=== PATIENT | female | born 1960 | race Caucasian/White ===

== ENCOUNTER 2021-01-31 12:56 | Inpatient (IN) | payer BC, OTHER ==
--- NOTE | 2021-01-31 13:11 | EDM.PDOC ---
ED HPI GENERAL MEDICAL PROBLEM - General Stated Complaint: AMBULANCE Time Seen by Provider: 01/31/21 13:04 - History of Present Illness INITIAL COMMENTS - FREE TEXT/NARRATIVE: 61 y/o F brought in by ems for ams. Found unresponsive by mother. Mom called 91 1. Unknown ingestion, trauma, downtime. EMS gave 2mg narcan and reports some brief improvement in activity. Pt has been non resposive for ems breathing adequately. Unknown medical hx. - Related Data Allergies Allergy/AdvReac Type Severity Reaction Status Date / Time Unable to Assess Allergy Unverified 01/31/21 13:44 Home Meds: Home Meds . [Unable to Verify Home Med List] 01/31/21 [History] ED ROS GENERAL - Review of Systems Review Of Systems: Unable To Obtain Reason Not Obtained: ams - Physical Exam Exam: See Below Exam Limited By: Altered Mental Status General Appearance: Obtunded Eye Exam: Bilateral Eye: Other (pinpoint) Ears: Normal External Exam, Normal Canal, Hearing Grossly Normal, Normal TMs Nose: Normal Inspection, Normal Mucosa, No Blood Throat/Mouth: Normal Inspection, Normal Lips, Normal Teeth, Normal Gums, Normal Oropharynx, Normal Voice, No Airway Compromise Head Exam: Atraumatic, Normocephalic Neck: Supple, Non-Tender Respiratory/Chest: No Respiratory Distress, Lungs Clear Cardiovascular: Normal Peripheral Pulses, Regular Rate, Rhythm GI/Abdominal: Soft, Non-Tender (Female) Exam: Deferred Rectal (Female) Exam: Deferred Back Exam: Normal Inspection, Full Range of Motion Extremities: Normal Inspection, Normal Range of Motion, Non-Tender, No Pedal Edema, Normal Capillary Refill Skin Exam: Warm, Dry, Intact Course - Vital Signs Last Recorded V/S: Last Vital Signs Temp 96.6 F L 01/31/21 13:36 Pulse 93 01/31/21 13:36 Resp 25 H 01/31/21 13:36 BP 121/80 01/31/21 13:36 Pulse Ox 91 L 01/31/21 13:36 - Orders/Labs/Meds Orders: Active Orders 24 hr Category Date Time Status Patient Status [ADT] Routine ADT 01/31/21 15:40 Active Labs: Laboratory Tests 01/31/21 01/31/21 01/31/21 Range/Units 13:00 13:00 13:00 WBC 8.1 (5.0-10.0) 10^3/uL RBC 5.11 (4.2-5.4) 10^6/uL Hgb 14.8 (12.0-16.0) g/dL Hct 44.3 (37.0-47.0) % MCV 86.7 (80-100) fL MCH 29.0 (27.0-34.0) pg MCHC 33.4 (33.0-35.0) g/dL Plt Count 250 (150-450) 10^3/uL Neut % (Auto) 81.9 H (42.2-75.2) % Lymph % (Auto) 13.5 L (20.5-50.1) % [place] % (Auto) 4.1 (2-8) % Eos % (Auto) 0.4 L (1.0-3.0) % Baso % (Auto) 0.1 (0.0-1.0) % Sodium 139 (136-145) mmol/L Potassium 3.8 (3.5-5.1) mmol/L Chloride 102 (98-107) mmol/L Carbon Dioxide 26 (21-32) mmol/L Anion Gap 14.8 H (7-13) mEq/L BUN 12 (7-18) mg/dL Creatinine 0.84 (0.55-1.02) mg/dL Est Cr Clr Drug Dosing TNP Estimated GFR (MDRD) > 60 BUN/Creatinine Ratio 14.3 (No establ ref range) Glucose 94 (70-99) mg/dL Lactic Acid 0.8 (0.4-2.0) mmol/L Calcium 8.7 (8.5-10.1) mg/dL Magnesium 2.2 (1.8-2.4) mg/dL Total Bilirubin 0.5 (0.2-1.0) mg/dL AST 37 (15-37) U/L ALT 38 (14-59) U/L Alkaline Phosphatase 106 (46-116) U/L Troponin I High Sens 5 (<=51) pg/mL C-Reactive Protein < 0.2 (0.0-0.9) mg/dL B-Natriuretic Peptide 12 (0-100) pg/ml Total Protein 6.9 (6.4-8.2) g/dL Albumin 3.5 (3.4-5.0) g/dL Globulin 3.4 Albumin/Globulin Ratio 1.0 Amylase 39 (25-115) U/L Lipase 98 (73-393) U/L Urine Color (YELLOW) Urine Appearance (CLEAR) Urine pH (5.0-9.0) Ur Specific [place] (1.005-1.030) Urine Protein (NEGATIVE) Urine Glucose (UA) (NEGATIVE) Urine Ketones (NEGATIVE) Urine Occult Blood (NEGATIVE) Urine Nitrite (NEGATIVE) Urine Bilirubin (NEGATIVE) Urine Urobilinogen (0.2-1.0) mg/dL Ur Leukocyte Esterase (NEGATIVE) Salicylates (2.8-20(Therapeutic)) mg/dL Urine Opiates Screen (NEGATIVE) Ur Oxycodone Screen (NEGATIVE) Urine Methadone Screen (NEGATIVE) Acetaminophen 0 L (10-30 (Therapeutic)) ug/mL Ur Barbiturates Screen (NEGATIVE) U Tricyclic Antidepress (NEGATIVE) Ur Phencyclidine Scrn (NEGATIVE) Ur Amphetamine Screen (NEGATIVE) U Methamphetamines Scrn (NEGATIVE) Urine MDMA Screen (NEGATIVE) U Benzodiazepines Scrn (NEGATIVE) Urine Cocaine Screen (NEGATIVE) U Marijuana (THC) Screen (NEGATIVE) Ethyl Alcohol < 3 (0) mg/dL SARS CoV-2 RNA Rapid JIMMY (NEGATIVE) 01/31/21 01/31/21 01/31/21 Range/Units 13:00 13:06 13:06 WBC (5.0-10.0) 10^3/uL RBC (4.2-5.4) 10^6/uL Hgb (12.0-16.0) g/dL Hct (37.0-47.0) % MCV (80-100) fL MCH (27.0-34.0) pg MCHC (33.0-35.0) g/dL Plt Count (150-450) 10^3/uL Neut % (Auto) (42.2-75.2) % Lymph % (Auto) (20.5-50.1) % [place] % (Auto) (2-8) % Eos % (Auto) (1.0-3.0) % Baso % (Auto) (0.0-1.0) % Sodium (136-145) mmol/L Potassium (3.5-5.1) mmol/L Chloride (98-107) mmol/L Carbon Dioxide (21-32) mmol/L Anion Gap (7-13) mEq/L BUN (7-18) mg/dL Creatinine (0.55-1.02) mg/dL Est Cr Clr Drug Dosing Estimated GFR (MDRD) BUN/Creatinine Ratio (No establ ref range) Glucose (70-99) mg/dL Lactic Acid (0.4-2.0) mmol/L Calcium (8.5-10.1) mg/dL Magnesium (1.8-2.4) mg/dL Total Bilirubin (0.2-1.0) mg/dL AST (15-37) U/L ALT (14-59) U/L Alkaline Phosphatase (46-116) U/L Troponin I High Sens (<=51) pg/mL C-Reactive Protein (0.0-0.9) mg/dL B-Natriuretic Peptide (0-100) pg/ml Total Protein (6.4-8.2) g/dL Albumin (3.4-5.0) g/dL Globulin Albumin/Globulin Ratio Amylase (25-115) U/L Lipase (73-393) U/L Urine Color Yellow (YELLOW) Urine Appearance Slightly cloudy (CLEAR) Urine pH 5.0 (5.0-9.0) Ur Specific [place] 1.025 (1.005-1.030) Urine Protein Negative (NEGATIVE) Urine Glucose (UA) Negative (NEGATIVE) Urine Ketones Trace H (NEGATIVE) Urine Occult Blood Negative (NEGATIVE) Urine Nitrite Negative (NEGATIVE) Urine Bilirubin Negative (NEGATIVE) Urine Urobilinogen 0.2 (0.2-1.0) mg/dL Ur Leukocyte Esterase Negative (NEGATIVE) Salicylates < 2.8 L (2.8-20(Therapeutic)) mg/dL Urine Opiates Screen Negative (NEGATIVE) Ur Oxycodone Screen Negative (NEGATIVE) Urine Methadone Screen Negative (NEGATIVE) Acetaminophen (10-30 (Therapeutic)) ug/mL Ur Barbiturates Screen Negative (NEGATIVE) U Tricyclic Antidepress Negative (NEGATIVE) Ur Phencyclidine Scrn Negative (NEGATIVE) Ur Amphetamine Screen Negative (NEGATIVE) U Methamphetamines Scrn Negative (NEGATIVE) Urine MDMA Screen Negative (NEGATIVE) U Benzodiazepines Scrn Positive H (NEGATIVE) Urine Cocaine Screen Negative (NEGATIVE) U Marijuana (THC) Screen Negative (NEGATIVE) Ethyl Alcohol (0) mg/dL SARS CoV-2 RNA Rapid JIMMY (NEGATIVE) 10/22/21 Range/Units 15:29 WBC (5.0-10.0) 10^3/uL RBC (4.2-5.4) 10^6/uL Hgb (12.0-16.0) g/dL Hct (37.0-47.0) % MCV (80-100) fL MCH (27.0-34.0) pg MCHC (33.0-35.0) g/dL Plt Count (150-450) 10^3/uL Neut % (Auto) (42.2-75.2) % Lymph % (Auto) (20.5-50.1) % [place] % (Auto) (2-8) % Eos % (Auto) (1.0-3.0) % Baso % (Auto) (0.0-1.0) % Sodium (136-145) mmol/L Potassium (3.5-5.1) mmol/L Chloride (98-107) mmol/L Carbon Dioxide (21-32) mmol/L Anion Gap (7-13) mEq/L BUN (7-18) mg/dL Creatinine (0.55-1.02) mg/dL Est Cr Clr Drug Dosing Estimated GFR (MDRD) BUN/Creatinine Ratio (No establ ref range) Glucose (70-99) mg/dL Lactic Acid (0.4-2.0) mmol/L Calcium (8.5-10.1) mg/dL Magnesium (1.8-2.4) mg/dL Total Bilirubin (0.2-1.0) mg/dL AST (15-37) U/L ALT (14-59) U/L Alkaline Phosphatase (46-116) U/L Troponin I High Sens (<=51) pg/mL C-Reactive Protein (0.0-0.9) mg/dL B-Natriuretic Peptide (0-100) pg/ml Total Protein (6.4-8.2) g/dL Albumin (3.4-5.0) g/dL Globulin Albumin/Globulin Ratio Amylase (25-115) U/L Lipase (73-393) U/L Urine Color (YELLOW) Urine Appearance (CLEAR) Urine pH (5.0-9.0) Ur Specific [place] (1.005-1.030) Urine Protein (NEGATIVE) Urine Glucose (UA) (NEGATIVE) Urine Ketones (NEGATIVE) Urine Occult Blood (NEGATIVE) Urine Nitrite (NEGATIVE) Urine Bilirubin (NEGATIVE) Urine Urobilinogen (0.2-1.0) mg/dL Ur Leukocyte Esterase (NEGATIVE) Salicylates (2.8-20(Therapeutic)) mg/dL Urine Opiates Screen (NEGATIVE) Ur Oxycodone Screen (NEGATIVE) Urine Methadone Screen (NEGATIVE) Acetaminophen (10-30 (Therapeutic)) ug/mL Ur Barbiturates Screen (NEGATIVE) U Tricyclic Antidepress (NEGATIVE) Ur Phencyclidine Scrn (NEGATIVE) Ur Amphetamine Screen (NEGATIVE) U Methamphetamines Scrn (NEGATIVE) Urine MDMA Screen (NEGATIVE) U Benzodiazepines Scrn (NEGATIVE) Urine Cocaine Screen (NEGATIVE) U Marijuana (THC) Screen (NEGATIVE) Ethyl Alcohol (0) mg/dL SARS CoV-2 RNA Rapid JIMMY Negative (NEGATIVE) Meds: Medications Discontinued Medications Generic Name Dose Route Start Last Admin Trade Name Freq PRN Reason Stop Dose Admin Flumazenil 0.5 mg 01/31/21 14:13 01/31/21 14:29 Flumazenil 0.1 Mg/Ml 5 Ml Mdv IVPUSH 01/31/21 14:14 0.5 mg ONETIME ONE Administration Flumazenil 0.5 mg 01/31/21 14:36 Flumazenil 0.1 Mg/Ml 5 Ml Mdv IVPUSH 01/31/21 14:37 ONETIME ONE Naloxone HCl 2 mg 01/31/21 13:15 01/31/21 13:18 Naloxone 2 Mg/2 Ml Syringe IVPUSH 01/31/21 13:16 2 mg ONETIME ONE Administration Naloxone HCl Confirm 01/31/21 13:17 01/31/21 13:58 Naloxone 2 Mg/2 Ml Syringe Administered 01/31/21 13:18 Not Given Dose 2 mg .ROUTE .STK-MED ONE - Re-Assessments/Exams Free Text/Narrative Re-Assessment/Exam: 01/31/21 15:02 I discussed the pt with Dr. Burton who accepted the pt for inpatient treatment. 01/31/21 15:07 The pt was given a dose of Romazicon and did wake up briefly. She states that she did not intentionally overdose on her meds and does not state any suicidal ideations or depression. Departure - Departure Time of Disposition: 15:05 (Dr. Burton) Disposition: Admitted As Inpatient 66 Condition: Fair Clinical Impression: Benzodiazepine (tranquilizer) overdose Qualifiers: Encounter type: initial encounter Injury intent: accidental or unintentional Qualified Code(s): T42.4X1A - Poisoning by benzodiazepines, accidental (unintentional), initial encounter - Discharge Information *PRESCRIPTION DRUG MONITORING PROGRAM REVIEWED*: Not Applicable *COPY OF PRESCRIPTION DRUG MONITORING REPORT IN PATIENT ALEX: Not Applicable Sepsis Event Note (ED) - Focused Exam Vital Signs: Vital Signs Temp Pulse Resp BP Pulse Ox 01/31/21 13:36 96.6 F L 93 25 H 121/80 91 L
[2021-01-31] MEDS ORDERED: Naloxone 2 MG/2 ML Syringe IVPUSH ONE (13:15)
[2021-01-31] MEDS ORDERED: Naloxone 2 MG/2 ML Syringe ONE (13:17)
[2021-01-31 13:27] LABS: AMPHETAMINES,URINE NEGATIVE (NEGATIVE); BARBITURATES,URINE NEGATIVE (NEGATIVE); MDMA (ECSTASY), URINE NEGATIVE (NEGATIVE); METHADONE,URINE NEGATIVE (NEGATIVE); METHAMPHETAMINES,URINE NEGATIVE (NEGATIVE); OPIATES,URINE NEGATIVE (NEGATIVE); OXYCODONE,URINE NEGATIVE (NEGATIVE); PHENCYCLIDINE,URINE NEGATIVE (NEGATIVE); TCA,URINE NEGATIVE (NEGATIVE)
[2021-01-31 13:28] LABS: BENZODIAZEPINE,URINE POSITIVE (NEGATIVE)
[2021-01-31 13:29] LABS: ANION GAP 14.8 mEq/L (7-13); CHLORIDE,CL 102 mmol/L (98-107); SODIUM,NA 139 mmol/L (136-145)
[2021-01-31 13:30] LABS: ACETAMINOPHEN 0 ug/mL (10-30 (Therapeutic))
--- NOTE | 2021-01-31 13:38 | CT ---
PROCEDURE INFORMATION: Exam: CT Head Without Contrast Exam date and time: 01/31/2021 1:27 PM Age: 61 years old Clinical indication: Altered mental status/memory loss; Additional info: AMS TECHNIQUE: Imaging protocol: Computed tomography of the head without contrast. Radiation optimization: All CT scans at this facility use at least one of these dose optimization techniques: automated exposure control; mA and/or kV adjustment per patient size (includes targeted exams where dose is matched to clinical indication); or iterative reconstruction. Other technique: STROKE PROTOCOL was implemented. COMPARISON: No relevant prior studies available. FINDINGS: Brain: Normal. No hemorrhage. Unremarkable white matter. No mass effect. Cerebral ventricles: No ventriculomegaly. Paranasal sinuses: Visualized sinuses are unremarkable. No fluid levels. Mastoid air cells: Visualized mastoid air cells are well aerated. Bones/joints: Unremarkable. No acute fracture. Soft tissues: Unremarkable. IMPRESSION: No acute intracranial abnormality. ASSESSMENT: ASPECTS ([place] Stroke Program Early CT Score) is 10.
[2021-01-31] MEDS ORDERED: Flumazenil 0.1 MG/ML 5 ML MDV IVPUSH ONE ×2 (14:13→14:36)
--- NOTE | 2021-01-31 19:12 | PCM.HP ---
H&P History of Present Illness - General Date of Service: 01/31/21 Admit Problem/Dx: Admission Diagnosis/Problem Admission Diagnosis/Problem Mental status, decreased - History of Present Illness Initial Comments - Free Text/Narative: Paola is a 61-year-old woman who was brought to the ED by EMS after being found unresponsive at home. She was given Narcan by the EMS crew, which did improve her mentation a little bit. By the time she got to the ED, she was really not protecting her airway well, and oxygen saturations were in the upper 70s to lower 80s. She was given a dose of flumazenil, after which she then woke up and was answering some questions from the ER provider. He documents that she denied any kind of suicidal ideation or intentional overdose. Shortly after this conversation, she again became somewhat obtunded, was still saturating in the 90s on 2 L of nasal cannula, but not able to talk or respond to questions. She was withdrawn and interacting with most stimuli. Decision was then made to admit her overnight, hopefully she will metabolize what ever it is that she took, although urine drug screen was only positive for benzodiazepines. - Related Data Allergies/Adverse Reactions: Allergies Allergy/AdvReac Type Severity Reaction Status Date / Time Penicillins Allergy Other Verified 01/31/21 18:32 Home Medications: Home Meds . [No Known Home Meds] 01/31/21 [History] Social & Family History - Family History Family Medical History: Unobtainable - Tobacco Use Tobacco Use Status *Q: Unknown Ever Used Tobacco H&P Review of Systems - Review of Systems: Review Of Systems: Unable To Obtain Reason Not Obtained: Unable to obtain due to mental status change Exam - Exam Exam: See Below - Vital Signs Vital Signs: Last Vital Signs Temp 98.5 F 01/31/21 16:29 Pulse 84 01/31/21 16:29 Resp 20 01/31/21 16:29 BP 105/73 01/31/21 16:29 Pulse Ox 100 01/31/21 16:29 Weight: 166 lb 1.6 oz - Exam Physical Exam Comments:: General: Paola is a 61-year-old woman who has significant mental status change, but in no acute distress Oropharynx is clear, mucous membranes are moist. She does appear now to be appropriately protecting her airway Neck: Supple, no lymphadenopathy Heart: Regular rate and rhythm, 1 out of 6 systolic murmur best heard over the left sternal border Lungs: Clear to auscultation throughout Neurological exam is very difficult as she cannot cooperate with the exam - Patient Data Lab Results Last 24 hrs: Laboratory Results - last 24 hr 01/31/21 01/31/21 01/31/21 Range/Units 13:00 13:00 13:00 WBC 8.1 (5.0-10.0) 10^3/uL RBC 5.11 (4.2-5.4) 10^6/uL Hgb 14.8 (12.0-16.0) g/dL Hct 44.3 (37.0-47.0) % MCV 86.7 (80-100) fL MCH 29.0 (27.0-34.0) pg MCHC 33.4 (33.0-35.0) g/dL Plt Count 250 (150-450) 10^3/uL Neut % (Auto) 81.9 H (42.2-75.2) % Lymph % (Auto) 13.5 L (20.5-50.1) % [place] % (Auto) 4.1 (2-8) % Eos % (Auto) 0.4 L (1.0-3.0) % Baso % (Auto) 0.1 (0.0-1.0) % Sodium 139 (136-145) mmol/L Potassium 3.8 (3.5-5.1) mmol/L Chloride 102 (98-107) mmol/L Carbon Dioxide 26 (21-32) mmol/L Anion Gap 14.8 H (7-13) mEq/L BUN 12 (7-18) mg/dL Creatinine 0.84 (0.55-1.02) mg/dL Est Cr Clr Drug Dosing TNP Estimated GFR (MDRD) > 60 BUN/Creatinine Ratio 14.3 (No establ ref range) Glucose 94 (70-99) mg/dL Lactic Acid 0.8 (0.4-2.0) mmol/L Calcium 8.7 (8.5-10.1) mg/dL Magnesium 2.2 (1.8-2.4) mg/dL Total Bilirubin 0.5 (0.2-1.0) mg/dL AST 37 (15-37) U/L ALT 38 (14-59) U/L Alkaline Phosphatase 106 (46-116) U/L Troponin I High Sens 5 (<=51) pg/mL C-Reactive Protein < 0.2 (0.0-0.9) mg/dL B-Natriuretic Peptide 12 (0-100) pg/ml Total Protein 6.9 (6.4-8.2) g/dL Albumin 3.5 (3.4-5.0) g/dL Globulin 3.4 Albumin/Globulin Ratio 1.0 Amylase 39 (25-115) U/L Lipase 98 (73-393) U/L Urine Color (YELLOW) Urine Appearance (CLEAR) Urine pH (5.0-9.0) Ur Specific [place] (1.005-1.030) Urine Protein (NEGATIVE) Urine Glucose (UA) (NEGATIVE) Urine Ketones (NEGATIVE) Urine Occult Blood (NEGATIVE) Urine Nitrite (NEGATIVE) Urine Bilirubin (NEGATIVE) Urine Urobilinogen (0.2-1.0) mg/dL Ur Leukocyte Esterase (NEGATIVE) Salicylates (2.8-20(Therapeutic)) mg/dL Urine Opiates Screen (NEGATIVE) Ur Oxycodone Screen (NEGATIVE) Urine Methadone Screen (NEGATIVE) Acetaminophen 0 L (10-30 (Therapeutic)) ug/mL Ur Barbiturates Screen (NEGATIVE) U Tricyclic Antidepress (NEGATIVE) Ur Phencyclidine Scrn (NEGATIVE) Ur Amphetamine Screen (NEGATIVE) U Methamphetamines Scrn (NEGATIVE) Urine MDMA Screen (NEGATIVE) U Benzodiazepines Scrn (NEGATIVE) Urine Cocaine Screen (NEGATIVE) U Marijuana (THC) Screen (NEGATIVE) Ethyl Alcohol < 3 (0) mg/dL SARS CoV-2 RNA Rapid JIMMY (NEGATIVE) 01/31/21 01/31/21 01/31/21 Range/Units 13:00 13:06 13:06 WBC (5.0-10.0) 10^3/uL RBC (4.2-5.4) 10^6/uL Hgb (12.0-16.0) g/dL Hct (37.0-47.0) % MCV (80-100) fL MCH (27.0-34.0) pg MCHC (33.0-35.0) g/dL Plt Count (150-450) 10^3/uL Neut % (Auto) (42.2-75.2) % Lymph % (Auto) (20.5-50.1) % [place] % (Auto) (2-8) % Eos % (Auto) (1.0-3.0) % Baso % (Auto) (0.0-1.0) % Sodium (136-145) mmol/L Potassium (3.5-5.1) mmol/L Chloride (98-107) mmol/L Carbon Dioxide (21-32) mmol/L Anion Gap (7-13) mEq/L BUN (7-18) mg/dL Creatinine (0.55-1.02) mg/dL Est Cr Clr Drug Dosing Estimated GFR (MDRD) BUN/Creatinine Ratio (No establ ref range) Glucose (70-99) mg/dL Lactic Acid (0.4-2.0) mmol/L Calcium (8.5-10.1) mg/dL Magnesium (1.8-2.4) mg/dL Total Bilirubin (0.2-1.0) mg/dL AST (15-37) U/L ALT (14-59) U/L Alkaline Phosphatase (46-116) U/L Troponin I High Sens (<=51) pg/mL C-Reactive Protein (0.0-0.9) mg/dL B-Natriuretic Peptide (0-100) pg/ml Total Protein (6.4-8.2) g/dL Albumin (3.4-5.0) g/dL Globulin Albumin/Globulin Ratio Amylase (25-115) U/L Lipase (73-393) U/L Urine Color Yellow (YELLOW) Urine Appearance Slightly cloudy (CLEAR) Urine pH 5.0 (5.0-9.0) Ur Specific [place] 1.025 (1.005-1.030) Urine Protein Negative (NEGATIVE) Urine Glucose (UA) Negative (NEGATIVE) Urine Ketones Trace H (NEGATIVE) Urine Occult Blood Negative (NEGATIVE) Urine Nitrite Negative (NEGATIVE) Urine Bilirubin Negative (NEGATIVE) Urine Urobilinogen 0.2 (0.2-1.0) mg/dL Ur Leukocyte Esterase Negative (NEGATIVE) Salicylates < 2.8 L (2.8-20(Therapeutic)) mg/dL Urine Opiates Screen Negative (NEGATIVE) Ur Oxycodone Screen Negative (NEGATIVE) Urine Methadone Screen Negative (NEGATIVE) Acetaminophen (10-30 (Therapeutic)) ug/mL Ur Barbiturates Screen Negative (NEGATIVE) U Tricyclic Antidepress Negative (NEGATIVE) Ur Phencyclidine Scrn Negative (NEGATIVE) Ur Amphetamine Screen Negative (NEGATIVE) U Methamphetamines Scrn Negative (NEGATIVE) Urine MDMA Screen Negative (NEGATIVE) U Benzodiazepines Scrn Positive H (NEGATIVE) Urine Cocaine Screen Negative (NEGATIVE) U Marijuana (THC) Screen Negative (NEGATIVE) Ethyl Alcohol (0) mg/dL SARS CoV-2 RNA Rapid JIMMY (NEGATIVE) 01/31/21 Range/Units 15:29 WBC (5.0-10.0) 10^3/uL RBC (4.2-5.4) 10^6/uL Hgb (12.0-16.0) g/dL Hct (37.0-47.0) % MCV (80-100) fL MCH (27.0-34.0) pg MCHC (33.0-35.0) g/dL Plt Count (150-450) 10^3/uL Neut % (Auto) (42.2-75.2) % Lymph % (Auto) (20.5-50.1) % [place] % (Auto) (2-8) % Eos % (Auto) (1.0-3.0) % Baso % (Auto) (0.0-1.0) % Sodium (136-145) mmol/L Potassium (3.5-5.1) mmol/L Chloride (98-107) mmol/L Carbon Dioxide (21-32) mmol/L Anion Gap (7-13) mEq/L BUN (7-18) mg/dL Creatinine (0.55-1.02) mg/dL Est Cr Clr Drug Dosing Estimated GFR (MDRD) BUN/Creatinine Ratio (No establ ref range) Glucose (70-99) mg/dL Lactic Acid (0.4-2.0) mmol/L Calcium (8.5-10.1) mg/dL Magnesium (1.8-2.4) mg/dL Total Bilirubin (0.2-1.0) mg/dL AST (15-37) U/L ALT (14-59) U/L Alkaline Phosphatase (46-116) U/L Troponin I High Sens (<=51) pg/mL C-Reactive Protein (0.0-0.9) mg/dL B-Natriuretic Peptide (0-100) pg/ml Total Protein (6.4-8.2) g/dL Albumin (3.4-5.0) g/dL Globulin Albumin/Globulin Ratio Amylase (25-115) U/L Lipase (73-393) U/L Urine Color (YELLOW) Urine Appearance (CLEAR) Urine pH (5.0-9.0) Ur Specific [place] (1.005-1.030) Urine Protein (NEGATIVE) Urine Glucose (UA) (NEGATIVE) Urine Ketones (NEGATIVE) Urine Occult Blood (NEGATIVE) Urine Nitrite (NEGATIVE) Urine Bilirubin (NEGATIVE) Urine Urobilinogen (0.2-1.0) mg/dL Ur Leukocyte Esterase (NEGATIVE) Salicylates (2.8-20(Therapeutic)) mg/dL Urine Opiates Screen (NEGATIVE) Ur Oxycodone Screen (NEGATIVE) Urine Methadone Screen (NEGATIVE) Acetaminophen (10-30 (Therapeutic)) ug/mL Ur Barbiturates Screen (NEGATIVE) U Tricyclic Antidepress (NEGATIVE) Ur Phencyclidine Scrn (NEGATIVE) Ur Amphetamine Screen (NEGATIVE) U Methamphetamines Scrn (NEGATIVE) Urine MDMA Screen (NEGATIVE) U Benzodiazepines Scrn (NEGATIVE) Urine Cocaine Screen (NEGATIVE) U Marijuana (THC) Screen (NEGATIVE) Ethyl Alcohol (0) mg/dL SARS CoV-2 RNA Rapid JIMMY Negative (NEGATIVE) Result Diagrams: 01/31/21 13:00 01/31/21 13:00 *Q Meaningful Use (ADM) - VTE Risk Assess *Q Each Risk Factor Represents 1 Point: None Total Score 1 Point Risk Factors: 0 Each Risk Factor Represents 2 Points: Age 60 - 74 Years Total Score 2 Point Risk Factors: 2 Each Risk Factor Represents 3 Points: None Total Score 3 Point Risk Factors: 0 Each Risk Factor Represents 5 Points: None Total Score 5 Point Risk Factors: 0 Venous Thromboembolism Risk Factor Score *Q: 2 - Problem List (1) Benzodiazepine (tranquilizer) overdose SNOMED Code(s): 942859249 ICD Code: T42.4X1A - POISONING BY BENZODIAZEPINES, ACCIDENTAL, INIT Status: Acute Current Visit: No Qualifiers: Encounter type: initial encounter Injury intent: undetermined intent Qualified Code(s): T42.4X4A - Poisoning by benzodiazepines, undetermined, initial encounter Problem List Initiated/Reviewed/Updated: Yes Orders Last 24hrs: Active Orders 24 hr Category Date Time Status Patient Status [ADT] Routine ADT 01/31/21 15:40 Active Cardiac Monitoring [RC] CONTINUOUS Care 01/31/21 16:30 Active Oxygen Therapy [RC] PRN Care 01/31/21 16:29 Active Pulse Oximetry [RC] CONTINUOUS Care 01/31/21 16:30 Active Up With Assistance [RC] ASDIRECTED Care 01/31/21 16:29 Active VTE/DVT Education [RC] PER UNIT ROUTINE Care 01/31/21 16:29 Active Vital Signs [RC] Q2H Care 01/31/21 16:29 Active Regular Diet [DIET] Diet 01/31/21 Dinner Active Suicide Precautions [OM.PC] Routine Oth 01/31/21 16:29 Ordered Resuscitation Status Routine Resus Stat 01/31/21 16:29 Ordered Assessment/Plan Comment:: Assessment/Plan: 1. 61-year-old woman with overdose of benzodiazepines: She reported to the ED provider during that brief window of lucidity that she did not intentionally take an overdose. However family is quite concerned that she took multiple medications of her with an intent to hurt herself. We will need to wait until she is awake and able to answer questions, then we will have our crisis team come and assess her -Suicide precautions 2. VTE prophylaxis: Since we do not know much of her history, only her age of 61 is her identifiable risk factor at this point. With her mental status issues, I think mechanical prophylaxis would be a danger to her as far as falls are concerned. If she continues to remain obtunded, we will put in place pharmacological prophylaxis
[2021-02-01] MEDS: Lactated Ringers 1,000 ML IV SCH ×2 (10:09→18:09)
[2021-02-02] MEDS: Lactated Ringers 1,000 ML IV SCH ×3 (01:43→17:19)
--- NOTE | 2021-02-02 19:49 | PCM.PN ---
- General Info Date of Service: 02/02/21 Admission Dx/Problem (Free Text): Admission Diagnosis/Problem Admission Diagnosis/Problem Mental status, decreased Subjective Update: Paola is much more awake and talkative this morning. She is able to answer most of my questions. Her is up and visiting with her. We had a discussion with myself, the charge nurse and him about our treatment plan for her. He initially expressed hopeful optimism and want to cooperate with our plan fully. Nursing that has been watching her closely with suicide precautions report that she is talkative and alert, but her movements still seem to be somewhat sluggish and sometimes exaggerated. Her overall gross motor coordination has not yet quite back to normal - Patient Data Vitals - Most Recent: Last Vital Signs Temp 98.3 F 02/02/21 19:15 Pulse 85 02/02/21 19:15 Resp 16 02/02/21 19:15 BP 106/76 02/02/21 19:15 Pulse Ox 96 02/02/21 19:15 Weight - Most Recent: 166 lb 1.6 oz I&O - Last 24 Hours: Intake & Output 02/02/21 02/02/21 02/02/21 06:59 14:59 22:59 Intake Total 1760 1180 Balance 1760 1180 Med Orders - Current: Current Medications Lactated Ringer's (Ringers, Lactated) 1,000 mls @ 125 mls/hr IV ASDIRECTED NA[facility] Last Admin: 02/02/21 17:19 Dose: 125 mls/hr Documented by: Discontinued Medications Flumazenil (Flumazenil 0.1 Mg/Ml 5 Ml Mdv) 0.5 mg IVPUSH ONETIME ONE Stop: 01/31/21 14:14 Last Admin: 01/31/21 14:29 Dose: 0.5 mg Documented by: Flumazenil (Flumazenil 0.1 Mg/Ml 5 Ml Mdv) 0.5 mg IVPUSH ONETIME ONE Stop: 01/31/21 14:37 Last Admin: 01/31/21 15:00 Dose: Not Given Documented by: Naloxone HCl (Naloxone 2 Mg/2 Ml Syringe) 2 mg IVPUSH ONETIME ONE Stop: 01/31/21 13:16 Last Admin: 01/31/21 13:18 Dose: 2 mg Documented by: Naloxone HCl (Naloxone 2 Mg/2 Ml Syringe) Confirm Administered Dose 2 mg .ROUTE .STK-MED ONE Stop: 01/31/21 13:18 Last Admin: 01/31/21 13:58 Dose: Not Given Documented by: - Exam Physical Findings Comments:: General: Paola is a 61-year-old woman in no acute distress Oropharynx is clear, mucous membranes are moist Neck: Supple, no lymphadenopathy Heart: Regular rate and rhythm, no murmurs Lungs: Clear to auscultation throughout Neurological: I do see what the nurse is referring to, her intentional movements seem to be exaggerated and slow, although her mentation seems to be more normal today - Patient Data Result Diagrams: 01/31/21 13:00 01/31/21 13:00 Sepsis Event Note - Evaluation Sepsis Screening Result: No Definite Risk - Focused Exam Vital Signs: Vital Signs Temp Pulse Resp BP Pulse Ox 02/02/21 19:15 98.3 F 85 16 106/76 96 02/02/21 16:00 98.7 F 18 114/72 98 02/02/21 12:00 98.6 F 74 16 118/72 98 02/02/21 08:00 98.8 F 78 16 112/68 97 - Problem List & Annotations (1) Benzodiazepine (tranquilizer) overdose SNOMED Code(s): 567074679 Code(s): T42.4X1A - POISONING BY BENZODIAZEPINES, ACCIDENTAL, INIT Status: Acute Current Visit: No Qualifiers: Encounter type: initial encounter Injury intent: intentional self-harm Qualified Code(s): T42.4X2A - Poisoning by benzodiazepines, intentional self- harm, initial encounter - Problem List Review Problem List Initiated/Reviewed/Updated: Yes - Plan Plan:: Assessment/Plan: 1. 61-year-old woman with overdose of benzodiazepines -Shortly after our small conference with the , he declined to have the crisis psychiatric worker see Paola without the presence of a residue furnace operator. This is highly irregular, and I do not think psychiatric exam in the presence of counselor would be appropriate. Crisis social director did coordinate with her staff, as Paola is still somewhat sleepy, she will postpone the evaluation until tomorrow. If Paola attempts to leave AGAINST MEDICAL ADVICE, we will place a psychiatric hold on her. With her near fatal suicide attempt, psychiatric evaluation is crucial to try and guarantee her safety 2. VTE prophylaxis: Since we do not know much of her history, only her age of 61 is her identifiable risk factor at this point. With her mental status issues, I think mechanical prophylaxis would be a danger to her as far as falls are concerned. If she continues to remain obtunded, we will put in place pharmacological prophylaxis
--- NOTE | 2021-02-02 21:03 | PCM.PN ---
- General Info Date of Service: 02/01/21 Admission Dx/Problem (Free Text): Admission Diagnosis/Problem Admission Diagnosis/Problem Mental status, decreased Subjective Update: Paola continues to be quite somnolent today. She has had a couple of brief episodes where she is awake and talking, did communicate to nursing staff on 2 separate occasions, that this was an intentional overdose. She also expressed remorse and apologized out loud to her children, who were not present in the room. soaking tank worker did a test to evaluate her today, but she is not able to cooperate enough in an exam for that to occur. - Patient Data Vitals - Most Recent: Last Vital Signs Temp 98.3 F 02/02/21 19:15 Pulse 85 02/02/21 19:15 Resp 16 02/02/21 19:15 BP 106/76 02/02/21 19:15 Pulse Ox 96 02/02/21 19:15 Weight - Most Recent: 166 lb 1.6 oz I&O - Last 24 Hours: Intake & Output 02/02/21 02/02/21 02/02/21 06:59 14:59 22:59 Intake Total 1760 1180 Balance 1760 1180 Med Orders - Current: Current Medications Lactated Ringer's (Ringers, Lactated) 1,000 mls @ 125 mls/hr IV ASDIRECTED [facility] Last Admin: 02/02/21 17:19 Dose: 125 mls/hr Documented by: Discontinued Medications Flumazenil (Flumazenil 0.1 Mg/Ml 5 Ml Mdv) 0.5 mg IVPUSH ONETIME ONE Stop: 01/31/21 14:14 Last Admin: 01/31/21 14:29 Dose: 0.5 mg Documented by: Flumazenil (Flumazenil 0.1 Mg/Ml 5 Ml Mdv) 0.5 mg IVPUSH ONETIME ONE Stop: 01/31/21 14:37 Last Admin: 01/31/21 15:00 Dose: Not Given Documented by: Naloxone HCl (Naloxone 2 Mg/2 Ml Syringe) 2 mg IVPUSH ONETIME ONE Stop: 01/31/21 13:16 Last Admin: 01/31/21 13:18 Dose: 2 mg Documented by: Naloxone HCl (Naloxone 2 Mg/2 Ml Syringe) Confirm Administered Dose 2 mg .ROUTE .STK-MED ONE Stop: 01/31/21 13:18 Last Admin: 01/31/21 13:58 Dose: Not Given Documented by: - Exam Physical Findings Comments:: General: Paola is a 61-year-old woman in no acute distress. She showed no signs of respiratory distress, she is saturating 94 to 100% on room air Oropharynx is clear, she is protecting her airway normally Lungs: Clear to auscultation throughout Neurological: Neurological exam is difficult, as she cannot participate fully in the exam, but she is moving all 4 extremities spontaneously - Patient Data Result Diagrams: 01/31/21 13:00 01/31/21 13:00 Sepsis Event Note - Evaluation Sepsis Screening Result: No Definite Risk - Focused Exam Vital Signs: Vital Signs Temp Pulse Resp BP Pulse Ox 02/02/21 19:15 98.3 F 85 16 106/76 96 02/02/21 16:00 98.7 F 18 114/72 98 02/02/21 12:00 98.6 F 74 16 118/72 98 - Problem List & Annotations (1) Benzodiazepine (tranquilizer) overdose SNOMED Code(s): 607941727 Code(s): T42.4X1A - POISONING BY BENZODIAZEPINES, ACCIDENTAL, INIT Status: Acute Current Visit: No Qualifiers: Encounter type: initial encounter Injury intent: intentional self-harm Qualified Code(s): T42.4X2A - Poisoning by benzodiazepines, intentional self- harm, initial encounter - Problem List Review Problem List Initiated/Reviewed/Updated: Yes - Plan Plan:: Assessment/Plan: 1. 61-year-old woman with intentional overdose by benzodiazepine ingestion, with initial respiratory failure -She continues to improve as the benzodiazepines metabolized out of her system. -Crisis psychiatric worker could not evaluate her today, will need to readdress this tomorrow. There does not seem to be much risk of Paola leaving AMA today, but if she attempts to, we will place a psychiatric crisis hold on her 2. VTE prophylaxis: Since we do not know much of her history, only her age of 61 is her identifiable risk factor at this point. With her mental status issues, I think mechanical prophylaxis would be a danger to her as far as falls are concerned. If she continues to remain obtunded, we will put in place pharmacological prophylaxis 3. I had a good discussion with her on the telephone, we will get him up to see her in the morning, hopefully in coordination with that psychiatric crisis exam.
[2021-02-03] MEDS: Lactated Ringers 1,000 ML IV SCH (00:34)
--- NOTE | 2021-02-03 08:10 | PCM.PN ---
- Patient Data Vitals - Most Recent: Last Vital Signs Temp 98.3 F 02/03/21 04:20 Pulse 67 02/03/21 04:20 Resp 16 02/03/21 04:20 BP 106/61 02/03/21 04:20 Pulse Ox 96 02/03/21 04:20 Weight - Most Recent: 166 lb 1.6 oz I&O - Last 24 Hours: Intake & Output 02/02/21 02/03/21 02/03/21 22:59 06:59 14:59 Intake Total 1180 Balance 1180 Med Orders - Current: Current Medications Lactated Ringer's (Ringers, Lactated) 1,000 mls @ 125 mls/hr IV ASDIRECTED [facility] Last Admin: 02/03/21 00:34 Dose: 125 mls/hr Documented by: Discontinued Medications Flumazenil (Flumazenil 0.1 Mg/Ml 5 Ml Mdv) 0.5 mg IVPUSH ONETIME ONE Stop: 01/31/21 14:14 Last Admin: 01/31/21 14:29 Dose: 0.5 mg Documented by: Flumazenil (Flumazenil 0.1 Mg/Ml 5 Ml Mdv) 0.5 mg IVPUSH ONETIME ONE Stop: 01/31/21 14:37 Last Admin: 01/31/21 15:00 Dose: Not Given Documented by: Naloxone HCl (Naloxone 2 Mg/2 Ml Syringe) 2 mg IVPUSH ONETIME ONE Stop: 01/31/21 13:16 Last Admin: 01/31/21 13:18 Dose: 2 mg Documented by: Naloxone HCl (Naloxone 2 Mg/2 Ml Syringe) Confirm Administered Dose 2 mg .ROUTE .STK-MED ONE Stop: 01/31/21 13:18 Last Admin: 01/31/21 13:58 Dose: Not Given Documented by: - Patient Data Result Diagrams: 01/31/21 13:00 01/31/21 13:00 Sepsis Event Note - Evaluation Sepsis Screening Result: No Definite Risk - Focused Exam Vital Signs: Vital Signs Temp Pulse Resp BP Pulse Ox 02/03/21 04:20 98.3 F 67 16 106/61 96 02/03/21 00:30 97.9 F 80 16 95/79 96 - Problem List & Annotations (1) Benzodiazepine (tranquilizer) overdose SNOMED Code(s): 730245519 Code(s): T42.4X1A - POISONING BY BENZODIAZEPINES, ACCIDENTAL, INIT Status: Acute Current Visit: No Qualifiers: Encounter type: initial encounter Injury intent: intentional self-harm Qualified Code(s): T42.4X2A - Poisoning by benzodiazepines, intentional self- harm, initial encounter - Plan Plan:: Assessment/Plan: 1. 61-year-old woman with overdose of benzodiazepines -Shortly after our small conference with the , he declined to have the crisis psychiatric worker see Paola without the presence of a criminal justice lawyer. This is highly irregular, and I do not think psychiatric exam in the presence of counselor would be appropriate. Crisis social welfare clerk did coordinate with her staff, as Paola is still somewhat sleepy, she will postpone the evaluation until tomorrow. If Paola attempts to leave AGAINST MEDICAL ADVICE, we will place a psychiatric hold on her. With her near fatal suicide attempt, psychiatric evaluation is crucial to try and guarantee her safety 2. VTE prophylaxis: Since we do not know much of her history, only her age of 61 is her identifiable risk factor at this point. With her mental status issu es, I think mechanical prophylaxis would be a danger to her as far as falls are concerned. If she continues to remain obtunded, we will put in place pharmacological prophylaxis
--- NOTE | 2021-02-03 13:00 | PCM.DCSUM1 ---
Discharge Summary - Hospital Course Free Text/Narrative:: Paola is a 61-year-old woman who was admitted on the after intentionally ingesting a large amount of benzodiazepines at home. She was found by EMS at home, unresponsive. Upon her arrival to the ED, she nearly had to be intubated, but fortunately a dose of flumazenil was able to reverse the effects enough to allow her to protect her airway and breathe with assistance of nasal cannula. She was admitted here for medical observation, as she was coming off the effects of those benzodiazepines. By the morning of hospital day #1, she was still too sedated for our chrome worker to have a full interview with her. On the morning of hospital day #2, our chrome worker attempted to have an interview with Paola, but her was very nervous about this, and wanted to wait until an collections attorney was present. We attempted through administrative channels to resolve this, by the morning of hospital day #3, she had a psychiatric hold placed on her, and was accepted in transfer to [facility], to their psychiatric crisis unit, by Dr. Odell. She was medically stable upon her transfer - Discharge Data Discharge Date: 02/03/21 (Transfer to [facility]) Discharge Disposition: DC/Tfer to Psych Hosp/Unit [facility] Condition: Good - Referral to Home Health Primary Care Physician: PCP None - Discharge Diagnosis/Problem(s) (1) Benzodiazepine (tranquilizer) overdose SNOMED Code(s): 865935818 ICD Code: T42.4X1A - POISONING BY BENZODIAZEPINES, ACCIDENTAL, INIT Status: Acute Qualifiers: Encounter type: initial encounter Injury intent: intentional self-harm Qualified Code(s): T42.4X2A - Poisoning by benzodiazepines, intentional self- harm, initial encounter - Discharge Plan *PRESCRIPTION DRUG MONITORING PROGRAM REVIEWED*: Not Applicable *COPY OF PRESCRIPTION DRUG MONITORING REPORT IN PATIENT ALEX: Not Applicable Home Medications: Home Meds . [No Known Home Meds] 01/31/21 [History] Forms: ED Department Discharge Referrals: PCP,None [Primary Care Provider] - - Discharge Summary/Plan Comment DC Time >30 min.: Yes (time spent on transfer process and handover) Total # of Minutes for Discharge Time: 45 minutes Discharge Summary/Plan Comment: Transfer diagnoses: 1. Suicide attempt by benzodiazepine overdose 2. Respiratory failure secondary to #1, resolved 3. Severe major depressive disorder, leading to #1 Transfer plan: 1. As above, she is transferred via basic life support ambulance to [facility], to their psychiatric crisis unit. She is transferred via ambulance as she is currently on a psychiatric hold - General Info Date of Service: 02/03/21 Admission Dx/Problem (Free Text: Admission Diagnosis/Problem Admission Diagnosis/Problem Mental status, decreased Subjective Update: See above summary - Patient Data Vitals - Most Recent: Last Vital Signs Temp 97.7 F 02/03/21 11:21 Pulse 73 02/03/21 11:21 Resp 16 02/03/21 11:21 BP 112/59 L 02/03/21 11:21 Pulse Ox 95 02/03/21 11:21 Weight - Most Recent: 166 lb 1.6 oz I&O - Last 24 hours: Intake & Output 02/02/21 02/03/21 02/03/21 22:59 06:59 14:59 Intake Total 1180 900 Balance 1180 900 Med Orders - Current: Current Medications Discontinued Medications Flumazenil (Flumazenil 0.1 Mg/Ml 5 Ml Mdv) 0.5 mg IVPUSH ONETIME ONE Stop: 01/31/21 14:14 Last Admin: 01/31/21 14:29 Dose: 0.5 mg Documented by: Flumazenil (Flumazenil 0.1 Mg/Ml 5 Ml Mdv) 0.5 mg IVPUSH ONETIME ONE Stop: 01/31/21 14:37 Last Admin: 01/31/21 15:00 Dose: Not Given Documented by: Lactated Ringer's (Ringers, Lactated) 1,000 mls @ 125 mls/hr IV ASDIRECTED [facility] Last Admin: 02/03/21 00:34 Dose: 125 mls/hr Documented by: Naloxone HCl (Naloxone 2 Mg/2 Ml Syringe) 2 mg IVPUSH ONETIME ONE Stop: 01/31/21 13:16 Last Admin: 01/31/21 13:18 Dose: 2 mg Documented by: Naloxone HCl (Naloxone 2 Mg/2 Ml Syringe) Confirm Administered Dose 2 mg .ROUTE .STK-MED ONE Stop: 01/31/21 13:18 Last Admin: 01/31/21 13:58 Dose: Not Given Documented by:
== END 2021-02-03 13:30 | DRG 917 ==
LOC: DL.ED 12:56 → DL.MS 16:17
PROVIDERS: ADMIT Family Medicine; ATTEND Family Medicine
DX: T42.4X2A Poisoning by benzodiazepines, intentional self-harm, initial encounter (principal); J96.90 Respiratory failure, unspecified, unspecified whether with hypoxia or hypercapnia; Z88.0 Allergy status to penicillin; Z20.822 Contact with and (suspected) exposure to COVID-19
CPT/HCPCS: 36415; 70450; 80053; 80143; 80179; 80305-QW; 80307; 81003; 82150; 83605; 83690; 83735; 83880; 84484; 85025; 86140; 93005; 96374; 96375; 99285-25; J2310; J3490; J7120; U0002